=== PATIENT | male | born 2000 | race Hispanic/Latino ===

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

== ENCOUNTER 2020-01-18 00:48 | Emergency (ER) | payer MEDICAID ==
[2020-01-18] MEDS ORDERED: CEFTRIAXONE SODIUM 1 GM ONE (01:26)
[2020-01-18] MEDS ORDERED: DEXAMETHASONE SOD PHOSPHATE 10MG/ML 1ML VIAL ONE (01:26)
[2020-01-18] MEDS ORDERED: LIDOCAINE HCL-MPF 1% 2ML VIAL ONE (01:26)
[2020-01-18] MEDS ORDERED: IPRATROPIUM/ALBUTEROL SULFATE 3 ML SOLUTION IH ONE (01:35)
== END 2020-01-18 02:23 | disposition home or self-care (01) ==
LOC: EDH 00:48
DX: J20.9 Acute bronchitis, unspecified (principal); F90.9 Attention-deficit hyperactivity disorder, unspecified type; F41.9 Anxiety disorder, unspecified; Z72.0 Tobacco use; Z88.8 Allergy status to other drugs, medicaments and biological substances
CPT/HCPCS: 71046; 87804 ×2; 94640; 96372 ×2; 99284; J0696; J1100; J3490

== ENCOUNTER 2021-10-22 06:35 | Emergency (ER) | payer MEDICAID ==
[~2021-10-22] VITALS: Ht 170.2 cm; Wt 104.3 kg
[2021-10-22] MEDS ORDERED: KETOROLAC 30MG VIAL (30MG/ML) ONE (07:53)
[2021-10-22] MEDS ORDERED: MORPHINE 4 MG SYG ONE (07:54)
[2021-10-22] MEDS ORDERED: KETOROLAC 60 MG VIAL (30MG/ML) IM SCH (08:00)
[2021-10-22] MEDS: MORPHINE 4 MG SYG IM SCH ×2 (08:00→08:14)
[2021-10-22 09:24] VITALS: BP 151/76
[2021-10-22] MEDS ORDERED: IBUP-2077 PO (09:32)
== END 2021-10-22 09:40 | disposition home or self-care (01) ==
LOC: EDH 06:35
DX: S42.492A Other displaced fracture of lower end of left humerus, initial encounter for closed fracture (principal); Z79.1 Long term (current) use of non-steroidal anti-inflammatories (NSAID); W01.0XXA Fall on same level from slipping, tripping and stumbling without subsequent striking against object, initial encounter; Y93.89 Activity, other specified; Y92.89 Other specified places as the place of occurrence of the external cause; Y99.8 Other external cause status
CPT/HCPCS: 29105; 73080; 96372 ×2; 99284; J1885; J2270